=== PATIENT | male | born 1980 | race African-American/Black ===

== ENCOUNTER 2017-01-29 10:21 | Emergency (ER) | payer OTHER ==
[~2017-01-29] VITALS: Wt 113.4 kg
[~2017-01-29 10:21] MED LIST: AMOXICILLIN500 MG PO; ANAPROX DS550 MG PO; CLARITIN-D 12 H1 TAB PO; CLARITIN10 MG PO; DELTASONE20 M1 PO; FLEXERIL10 MG PO; FLEXERIL5 MG PO; FLONASE ALLERG9.9 ML NAS; FLONASE ALLERG9.9 ML NS; HYDROCODONE BIT1 T11 PO; IBU-8800 MG PO; IBU800 M1 PO; MEDROL DOSEPAK4 MG PO; MOTRIN800 MG PO; Motrin,Rufen800 MG PO; PREDNICOT20 MG PO; PREDNISONE10 MG PO; PRILOSEC20 M1 PO; TOBREX OPHTH S2.5 ML OPH
[2017-01-29] MEDS ORDERED: Motrin,Rufen800 MG PO (11:38)
== END 2017-01-29 11:53 | disposition home or self-care (01) ==
LOC: ED 10:21
DX: S93.402A Sprain of unspecified ligament of left ankle, initial encounter (principal); F17.200 Nicotine dependence, unspecified, uncomplicated; X58.XXXA Exposure to other specified factors, initial encounter; Y93.89 Activity, other specified; Y92.89 Other specified places as the place of occurrence of the external cause; Y99.8 Other external cause status

== ENCOUNTER 2017-10-18 09:09 | Emergency (ER) | payer OTHER ==
[~2017-10-18] VITALS: Wt 117.9 kg
[2017-10-18] MEDS ORDERED: ZOFRAN ODT4 MG SL (10:55)
== END 2017-10-18 11:10 | disposition home or self-care (01) ==
LOC: ED 09:09
DX: J10.1 Influenza due to other identified influenza virus with other respiratory manifestations (principal); R11.10 Vomiting, unspecified; R19.7 Diarrhea, unspecified; F17.200 Nicotine dependence, unspecified, uncomplicated

== ENCOUNTER 2018-10-06 18:31 | Emergency (ER) | payer BC ==
[~2018-10-06] VITALS: Ht 195.5 cm; Wt 113.4 kg
[~2018-10-06 18:31] MED LIST changes: +CYCLOBENZAPRINE10 MG PO; +NAPROSYN500 MG PO; +PREDNISONE50 MG PO; +ZOFRAN ODT4 MG SL
== END 2018-10-06 20:15 | disposition home or self-care (01) ==
LOC: ED 18:31
DX: B27.90 Infectious mononucleosis, unspecified without complication (principal); F17.200 Nicotine dependence, unspecified, uncomplicated

== ENCOUNTER 2019-02-23 12:55 | Emergency (ER) | payer BC ==
[~2019-02-23] VITALS: Ht 195.5 cm; Wt 104.3 kg
[2019-02-23] MEDS ORDERED: NAPROSYN500 MG PO (14:56)
[2019-02-23] MEDS ORDERED: MEDROL DOSEPAK4 MG PO (14:56)
[2019-02-23] MEDS ORDERED: ROBAXIN500 M1 PO (14:56)
== END 2019-02-23 15:16 | disposition home or self-care (01) ==
LOC: ED 12:55
DX: S16.1XXA Strain of muscle, fascia and tendon at neck level, initial encounter (principal); Z79.899 Other long term (current) drug therapy; X50.0XXA Overexertion from strenuous movement or load, initial encounter; Y93.89 Activity, other specified; Y92.69 Other specified industrial and construction area as the place of occurrence of the external cause; Y99.8 Other external cause status

== ENCOUNTER 2019-06-14 17:16 | Emergency (ER) | payer OTHER ==
[~2019-06-14] VITALS: Ht 195.5 cm; Wt 113.4 kg
[~2019-06-14 17:16] MED LIST changes: +ROBAXIN500 M1 PO
== END 2019-06-14 18:14 | disposition home or self-care (01) ==
LOC: ED 17:16
DX: K08.89 Other specified disorders of teeth and supporting structures (principal)

== ENCOUNTER 2019-09-11 15:43 | Emergency (ER) | payer OTHER ==
[~2019-09-11] VITALS: Ht 195.5 cm; Wt 113.4 kg
[2019-09-11 16:33] LABS: BASO % 0.3 % (0.0-1.0); EOS # 0.2 10*3/uL (0.0-0.4); EOS % 2.8 % (1.0-4.0); HEMATOCRIT 41.8 % (42.0-52.0); HEMOGLOBIN 14.1 g/dl (14.0-18.0); LYMPH # 1.8 10*3/uL (1.3-4.4); LYMPH % 31.4 % (27.0-41.0); MEAN CELL VOLUME 88.4 fl (80.0-94.0); MEAN CORPUSCULAR HGB 29.8 pg (27.0-31.0); MEAN CORPUSCULAR HGB CONC 33.7 g/dl (33.0-37.0); MEAN PLATELET VOLUME 9.2 fl (9.6-12.3); MONO # 0.4 10*3/uL (0.1-1.0); MONO % 7.6 % (3.0-9.0); NEUT # 3.3 10*3/uL (2.3-7.9); NEUT % 57.7 % (47.0-73.0); PLATELET COUNT AUTOMATED 287 10*3/uL (130-400); RED BLOOD COUNT 4.73 10*6/uL (4.50-5.90); RED CELL DISTRI WIDTH 12.4 % (0-14.5); WHITE BLOOD COUNT 5.8 10*3/uL (4.8-10.8)
[2019-09-11 16:42] LABS: URINE AMPHETAMINES < 1000 (1000ng/ml); URINE BARBITURATES < 200 (200ng/ml); URINE BENZODIAZEPINES < 200 (200ng/ml); URINE CANNABINOIDS (THC) < 50 (50ng/ml); URINE COCAINE < 300 (300ng/ml); URINE METHADONE < 300 (300ng/ml); URINE OPIATES < 300 (300ng/ml)
[2019-09-11 16:43] LABS: URINE PHENCYCLIDINE < 25 (25ng/ml)
[2019-09-11 16:48] LABS: ALBUMIN 3.8 gm/dl (3.1-4.5); ALKALINE PHOSPHATASE 82 U/L (45-117); BUN 14 mg/dl (7-24); CHLORIDE 102 mmol/L (98-107); CREATININE 1.17 mg/dL (0.70-1.30); POTASSIUM 3.3 mmol/L (3.5-5.1); SGOT/AST 19 IU/L (3-35); SGPT/ALT 31 U/L (12-78); SODIUM 138 mmol/L (136-145); TOTAL PROTEIN 7.7 gm/dL (6.4-8.2)
[2019-09-11 16:50] LABS: BILIRUBIN NEGATIVE (NEGATIVE); BLOOD 1+ (NEGATIVE); CLARITY CLEAR (CLEAR); COLOR YELLOW (YELLOW); GLUCOSE NEGATIVE (NEGATIVE); KETONE NEGATIVE (NEGATIVE); LEUKO ESTERASE NEGATIVE (NEGATIVE); NITRITE NEGATIVE (NEGATIVE); UROBILINOGEN 0.2 E.U./dl (0.2-1.0)
[2019-09-11 16:52] LABS: TROPONIN I < 0.015 ng/ml (<0.045)
[2019-09-11 17:01] LABS: BACTERIA TRACE; EPITHELIAL CELLS 0-2
== END 2019-09-11 18:20 | disposition home or self-care (01) ==
LOC: ED 15:43
PROVIDERS: Physician Assistant
DX: F11.10 Opioid abuse, uncomplicated (principal); R23.0 Cyanosis; R40.20 Unspecified coma; F17.200 Nicotine dependence, unspecified, uncomplicated; Z79.899 Other long term (current) drug therapy

== ENCOUNTER → 2023-04-14 | Outpatient (CLI) | payer OTHER | END | disposition home or self-care (01) | LOC: CARD 00:55 | PROVIDERS: ATTEND Family Medicine | DX: R60.0 Localized edema (principal) ==

== ENCOUNTER → 2025-05-28 | Outpatient (CLI) | payer OTHER | END | disposition home or self-care (01) | LOC: RAD 08:39 | PROVIDERS: ATTEND Nurse Practitioner Family | DX: M54.50 Low back pain, unspecified (principal) ==